=== PATIENT | male | born 1980 | race Caucasian/White ===

== ENCOUNTER → 2019-12-04 | Outpatient (CLI) | payer OTHER | LOC: LAB 09:58 | PROVIDERS: ATTEND Family Medicine | DX: R05 Cough (principal) | CPT/HCPCS: 87804 ==

== ENCOUNTER 2020-11-02 20:25 | Observation (INO) | payer OTHER ==
[~2020-11-02] VITALS: Ht 195.5 cm; Wt 127.0 kg
[2020-11-02 21:24] LABS: BASOPHILS % (AUTO) 0 % (0-10); EOSINOPHILS % (AUTO) 0 % (0-10); HEMATOCRIT 41 % (40-54); HEMOGLOBIN 13.8 g/dL (13.3-17.7); LYMPHOCYTES # (AUTO) 1.5 10^3/uL (1.0-4.0); LYMPHOCYTES % (AUTO) 28 % (12-44); MEAN CORPUSCULAR HEMOGLOBIN 27 pg (25-34); MEAN CORPUSCULAR HGB CONC 34 g/dL (32-36); MEAN CORPUSCULAR VOLUME 80 fL (80-99); MEAN PLATELET VOLUME 11.5 fL (9.0-12.2); MONOCYTES # (AUTO) 0.6 10^3/uL (0.0-1.0); MONOCYTES % (AUTO) 10 % (0-12); NEUTROPHILS # (AUTO) 3.3 10^3/uL (1.8-7.8); NEUTROPHILS % (AUTO) 61 % (42-75); PLATELET COUNT 166 10^3/uL (130-400); WHITE BLOOD COUNT 5.4 10^3/uL (4.3-11.0)
[2020-11-02 21:27] LABS: BILIRUBIN,URINE NEGATIVE (NEGATIVE); CLARITY,URINE CLEAR; COLOR,URINE YELLOW; GLUCOSE, URINE (UA) NEGATIVE (NEGATIVE); KETONES,URINE TRACE (NEGATIVE); LEUKOCYTE ESTERASE ,URINE NEGATIVE (NEGATIVE); NITRITE,URINE NEGATIVE (NEGATIVE); PROTEIN,URINE NEGATIVE (NEGATIVE)
[2020-11-02 21:28] LABS: CHLORIDE 94 MMOL/L (98-107); POTASSIUM 3.4 MMOL/L (3.6-5.0); SODIUM 134 MMOL/L (135-145)
[2020-11-02 21:29] LABS: CALCIUM 9.5 MG/DL (8.5-10.1)
[2020-11-02 21:30] LABS: GLUCOSE 193 MG/DL (70-105); TOTAL PROTEIN 7.9 GM/DL (6.4-8.2)
[2020-11-02] MEDS ORDERED: ONDANSETRON 4 MG/2 ML (SDV) Z0FRAN IVP ONE (21:30)
[2020-11-02] MEDS ORDERED: LACTATED RINGERS 1,000 ML IV ONE ×2 (21:30→23:30)
[2020-11-02] MEDS ORDERED: FAMOTIDINE 20MG/2ML IV (PEPCID) IVP ONE (21:30)
[2020-11-02 21:31] LABS: CARBON DIOXIDE 24 MMOL/L (21-32)
[2020-11-02 21:32] LABS: BILIRUBIN,TOTAL 0.7 MG/DL (0.1-1.0)
[2020-11-02 21:33] LABS: ALKALINE PHOSPHATASE 49 U/L (40-136)
[2020-11-02 21:34] LABS: CREATININE SERUM 0.96 MG/DL (0.60-1.30); GFR ESTIMATED > 60
[2020-11-02 21:35] LABS: BUN/CREATININE RATIO 9
[2020-11-02 21:36] LABS: ALANINE AMINOTRANSFERASE 39 U/L (0-55)
[2020-11-02 21:37] LABS: BACTERIA,URINE NEGATIVE /HPF; SQUAMOUS EPITHELIAL CELL,UR 0-2 /HPF; WBC,URINE 0-2 /HPF
[2020-11-02 21:37] LABS: LIPASE 57 U/L (8-78)
[2020-11-02 21:52] LABS: ALBUMIN 4.4 GM/DL (3.2-4.5)
[2020-11-02] MEDS ORDERED: NS 100 ML (IVPB) BAG IV ONE (22:30)
[2020-11-02] MEDS ORDERED: HOLD METFORMIN - RECEIVED CONTRAST 20 ML VIAL IV SCH (22:30)
[2020-11-02] MEDS ORDERED: IOHEXOL 350 MG/ML 100 ML (OMNIPAQUE 350) VIAL IV ONE (22:30)
[2020-11-02] MEDS ORDERED: fentaNYL INJECTION 100 MCG/2 ML AMP IVP ONE (23:15)
--- NOTE | 2020-11-02 23:24 | ED GI ---
General Chief Complaint: Abdominal/GI Problems Stated Complaint: ABD PAIN/NAUSEA Nursing Triage Note: Pt ambulates to ER7, reports nausea/abd pain starting 2 hours after eating [employer] the prior evening. Pt reports this morning pain goes from back/flank forward to abdomen. No emesis. Sepsis Screen: No Definite Risk Source of Information: Patient Exam Limitations: No Limitations (LOLY HERNANDEZ MED STUDENT) History of Present Illness Date Seen by Provider: Nov 02, 2020 Time Seen by Provider: 21:00 Initial Comments This is a 40 year old male presenting to the Emergency Department via ambulation for a chief complaint of right upper quadrant abdominal pain and nausea. He ate [employer] last night around 7:30PM. He went to bed then woke up around 12:30AM with dull abdominal pain and shaking chills. About 6 hours later, he had right back pain that radiated to his abdomen. He felt "blah" the rest of the day. He took his medication around 7PM then had worse pain and shaking around 7:45. In the ER, he had a fever of 38.4C. He had nausea but denies cough, shortness of breath, vomiting, blood in his urination, or diarrhea. He's had a history of gallstones. Timing/Duration: 1 Day Location: [facility] (LOLY HERNANDEZ MED STUDENT) Allergies and Home Medications Allergies Coded Allergies: No Known Drug Allergies (Unverified , 11/02/20) Home Medications Atorvastatin Calcium 20 Mg Tablet, 20 MG PO DAILY, (Reported) Glyburide 5 Mg Tablet, 5 MG PO BID, (Reported) Lisinopril 10 Mg Tablet, 10 MG PO DAILY, (Reported) Metformin HCl 1,000 Mg Tablet, 1,000 MG PO BID, (Reported) Trazodone HCl 50 Mg Tablet, 50 MG PO HS, (Reported) Patient Home Medication List Home Medication List Reviewed: Yes (VERO BARTON MD) Review of Systems Review of Systems Constitutional: chills, fever EENTM: No Symptoms Reported Respiratory: No Symptoms Reported; Denies Cough, Denies Shortness of Air Cardiovascular: No Symptoms Reported Gastrointestinal: Abdominal Pain; Denies Diarrhea; Nausea; Denies Rectal Bleeding, Denies Vomiting Genitourinary: No Symptoms Reported Musculoskeletal: back pain Skin: no symptoms reported Psychiatric/Neurological: Tremors Endocrine: No Symptoms Reported (LOLY HERNANDEZ) Past Zsdizuh-Ksbgyj-Qcgfoi Hx Patient Social History Alcohol Use: Rarely Uses Smoking Status: Never a Smoker 2nd Hand Smoke Exposure: No Recent Infectious Disease Expo: No Recent Hopitalizations: No (LOLY HERNANDEZ) Immunizations Up To Date Tetanus Booster (TDap): Unknown Date of Pneumonia Vaccine: Oct 11, 2017 Date of Influenza Vaccine: Jul 11, 2020 (LOLY HERNANDEZ) Seasonal Allergies Seasonal Allergies: No (LOLY HERNANDEZ) Past Medical History Surgeries: Yes Orthopedic Respiratory: No Cardiac: Yes High Cholesterol, Hypertension Neurological: No Genitourinary: No Gastrointestinal: No Musculoskeletal: Yes (BPOP) Diabetes, Non-Insulin dep HEENT: No Cancer: No Psychosocial: No Integumentary: No Blood Disorders: No (LOLY HERNANDEZ) Physical Exam Vital Signs Vital Signs - First Documented 11/02/20 20:38 Temp 38.0 Pulse 105 Resp 18 B/P (MAP) 146/91 (109) Pulse Ox 97 O2 Delivery Room Air (VERO BARTON MD) Vital Signs Capillary Refill : Less Than 3 Seconds (LOLY HERNANDEZ) Height/Weight/BMI Height: '" Weight: lbs. oz. kg; 32.00 BMI Method: General Appearance: WD/WN, no apparent distress Respiratory: chest non-tender, lungs clear, normal breath sounds, no respiratory distress, no accessory muscle use Cardiovascular: regular rate, rhythm Gastrointestinal: normal bowel sounds, tenderness Neurologic/Psychiatric: alert, normal mood/affect Skin: normal color (LOLY HERNANDEZ) Progress/Results/Core Measures Results/Orders Lab Results Laboratory Tests Test 11/02/20 20:50 11/02/20 21:22 Range/Units White Blood Count 5.4 4.3-11.0 10^3/uL Red Blood Count 5.15 4.30-5.52 10^6/uL Hemoglobin 13.8 13.3-17.7 g/dL Hematocrit 41 40-54 % Mean Corpuscular Volume 80 80-99 fL Mean Corpuscular Hemoglobin 27 25-34 pg Mean Corpuscular Hemoglobin Concent 34 32-36 g/dL Red Cell Distribution Width 13.6 10.0-14.5 % Platelet Count 166 130-400 10^3/uL Mean Platelet Volume 11.5 9.0-12.2 fL Immature Granulocyte % (Auto) 0 % Neutrophils (%) (Auto) 61 42-75 % Lymphocytes (%) (Auto) 28 12-44 % Monocytes (%) (Auto) 10 0-12 % Eosinophils (%) (Auto) 0 0-10 % Basophils (%) (Auto) 0 0-10 % Neutrophils # (Auto) 3.3 1.8-7.8 10^3/uL Lymphocytes # (Auto) 1.5 1.0-4.0 10^3/uL Monocytes # (Auto) 0.6 0.0-1.0 10^3/uL Eosinophils # (Auto) 0.0 0.0-0.3 10^3/uL Basophils # (Auto) 0.0 0.0-0.1 10^3/uL Immature Granulocyte # (Auto) 0.0 0.0-0.1 10^3/uL Sodium Level 134 L 135-145 MMOL/L Potassium Level 3.4 L 3.6-5.0 MMOL/L Chloride Level 94 L 98-107 MMOL/L Carbon Dioxide Level 24 21-32 MMOL/L Anion Gap 16 H 5-14 MMOL/L Blood Urea Nitrogen 9 7-18 MG/DL Creatinine 0.96 0.60-1.30 MG/DL Estimat Glomerular Filtration Rate > 60 BUN/Creatinine Ratio 9 Glucose Level 193 H 70-105 MG/DL Calcium Level 9.5 8.5-10.1 MG/DL Corrected Calcium 9.2 8.5-10.1 MG/DL Total Bilirubin 0.7 0.1-1.0 MG/DL Aspartate Amino Transf (AST/SGOT) 20 5-34 U/L Alanine Aminotransferase (ALT/SGPT) 39 0-55 U/L Alkaline Phosphatase 49 40-136 U/L C-Reactive Protein High Sensitivity 2.51 H 0.00-0.50 MG/DL Total Protein 7.9 6.4-8.2 GM/DL Albumin 4.4 3.2-4.5 GM/DL Lipase 57 8-78 U/L Urine Color YELLOW Urine Clarity CLEAR Urine pH 7.0 5-9 Urine Specific [place] 1.020 1.016-1.022 Urine Protein NEGATIVE NEGATIVE Urine Glucose (UA) NEGATIVE NEGATIVE Urine Ketones TRACE H NEGATIVE Urine Nitrite NEGATIVE NEGATIVE Urine Bilirubin NEGATIVE NEGATIVE Urine Urobilinogen 1.0 < = 1.0 MG/DL Urine Leukocyte Esterase NEGATIVE NEGATIVE Urine RBC (Auto) NEGATIVE NEGATIVE Urine RBC NONE /HPF Urine WBC 0-2 /HPF Urine Squamous Epithelial Cells 0-2 /HPF Urine Crystals NONE /LPF Urine Bacteria NEGATIVE /HPF Urine Casts NONE /LPF Urine Mucus NEGATIVE /LPF Urine Culture Indicated NO (VERO BARTON MD) My Orders Orders - VERO BARTON MD Cbc With Automated Diff (11/02/20 21:16) Comprehensive Metabolic Panel (11/02/20 21:16) Lipase (11/02/20 21:16) Hs C Reactive Protein (11/02/20 21:16) Ua Culture If Indicated (11/02/20 21:16) Ed Iv/Invasive Line Start (11/02/20 21:16) Famotidine Injection (Pepcid Injection) (11/02/20 21:30) Ondansetron Injection (Zofran Injectio (11/02/20 21:30) Lactated Ringers (Lr 1000 Ml Iv Solution (11/02/20 21:30) Us Gallbladder [id number] (11/02/20 22:02) Ct Abdomen/Pelvis W (11/02/20 22:06) Iohexol Injection (Omnipaque 350 Mg/Ml 1 (11/02/20 22:30) Received Contrast (Hold Metformin- Contr (11/02/20 22:30) Ns (Ivpb) (Sodium Chloride 0.9% Ivpb Bag (11/02/20 22:30) Fentanyl Injection (Sublimaze Injection (11/02/20 23:15) Ciprofloxacin Iv 400mg/200ml (Cipro Iv S (11/02/20 23:30) Lactated Ringers (Lr 1000 Ml Iv Solution (11/02/20 23:30) (VERO BARTON MD) Medications Given in ED Current Medications Medications Dose Ordered Sig/Paul Route Start Time Stop Time Status Last Admin Dose Admin Famotidine 20 mg ONCE ONCE IVP 11/02/20 21:30 11/02/20 21:31 DC 11/02/20 22:09 20 MG Fentanyl Citrate 50 mcg ONCE ONCE IVP 11/02/20 23:15 11/02/20 23:16 DC 11/02/20 23:13 50 MCG Iohexol 100 ml ONCE ONCE IV 11/02/20 22:30 11/02/20 22:38 DC 11/02/20 22:30 100 ML Lactated Ringer's 1,000 ml @ 0 mls/hr Q0M ONCE IV 11/02/20 21:30 11/02/20 21:31 DC 11/02/20 22:09 999 MLS/HR Ondansetron HCl 8 mg ONCE ONCE IVP 11/02/20 21:30 11/02/20 21:31 DC 11/02/20 22:09 8 MG Sodium Chloride 80 ml ONCE ONCE IV 11/02/20 22:30 11/02/20 22:38 DC 11/02/20 22:30 80 ML (VERO BARTON MD) Vital Signs/I&O 11/02/20 20:38 Temp 38.0 Pulse 105 Resp 18 B/P (MAP) 146/91 (109) Pulse Ox 97 O2 Delivery Room Air 11/03/20 00:00 Intake Total 1000 ml Balance 1000 ml (VERO BARTON MD) Blood Pressure Mean: 109 Progress Progress Note : Time: 21:30 Progress Note - IV line was established and blood was drawn. NS was administered. Fentanyl was ordered for his abdominal pain. Odansetron was ordered for his nausea. U/S vs CT imaging studies and the risks were discussed with the patient. That patient preferred to go ahead with the CT. CT of the abdomen and pelvis results pending. There are possible stones in the gallbladder. Ciprofloxacin was ordered for possible gallbladder infection. He will be admitted over night to discuss the possibility of surgery with Dr. Crews in the morning. (LOLY HERNANDEZ X MED STUDENT) Progress Note : Progress Note Patient was seen and examined by me personally along with Loly Hernandez, MS 3. I am concerned about his fever in the context of right upper quadrant pain and gallstones visible on the CT scan. This was discussed with Dr. Hancock. As this may represent early acute cholecystitis, he recommended treating with Cipro and Flagyl. The first dose of IV Cipro was given in the ER. Fentanyl was given for pain. IV fluids were initiated. (VERO BARTON MD) Diagnostic Imaging Diagonstic Imaging: CT Plain Films/CT/US/NM/MRI: abdomen, pelvis Comments CT abdomen and pelvis viewed by me and stat rad report reviewed. Gallstones visible within the gallbladder. No pericholecystic fluid. (VERO BARTON MD) Departure Communication (Admissions) Time/Spoke to Admitting Phy: 23:07 Dr. Hancock (VERO BARTON MD) Impression Primary Impression: Cholelithiases Qualified Codes: K80.20 - Calculus of gallbladder without cholecystitis without obstruction Additional Impression: Fever Qualified Codes: R50.9 - Fever, unspecified Disposition: ADMITTED INPATIENT Condition: Improved Admissions Decision to Admit Reason: Admit from ER (General) Decision to Admit/Date: Nov 02, 2020 Time/Decision to Admit Time: 23:05 (VERO BARTON MD) Departure-Patient Inst. Referrals: JOYCE NEVAREZ MD (PCP/Family) Primary Care Physician Medical Student Attestation and Attending Note: I have personally interviewed and examined this patient along with Loly Hernandez, MS 3. I have reviewed student documentation including history, physical, and assessments. I agree with the documentation except where otherwise noted. Exam: General: Alert, oriented, no acute distress, well developed HEENT: Normocephalic and atraumatic Heart: Regular rate and rhythm without murmur Lungs: Clear to auscultation bilaterally with normal effort Abdomen: Soft, tenderness in the right upper quadrant and epigastrium with positive Tyler sign Neuropsych: Alert, oriented, no focal deficits Skin: Warm and dry without rashes (VERO BARTON MD) LOLY HERNANDEZ MED STUDENT Nov 02, 2020 23:24 VERO BARTON MD Nov 03, 2020 06:21
[2020-11-02] MEDS ORDERED: CIPROFLOXACIN IV 400MG/200ML 200 ML IV ONE (23:30)
--- NOTE | 2020-11-03 00:30 | HISTORY AND PHYSICAL ---
DATE OF SERVICE: ATTENDING PRIMARY CARE PHYSICIAN: Michelle Lindsay MD HISTORY OF PRESENT ILLNESS: The patient is a 40-year-old male who presented to the Emergency Department with right upper abdominal quadrant pain with radiation towards the back. He states that the night previous he had had a greasy meal and approximately 2 hours later developed pain in the right upper abdominal quadrant with radiation towards the back and this was associated with nausea; however, no vomiting. This pain persisted and he also had some mild fevers at home. He does not report any sick contacts, cough, high fevers nor any loss of smell or taste. A CT scan was performed, which did show some layering of the dependent portion of the gallbladder, which may indicate biliary sludge. His liver function enzymes as well as white count are normal. PAST MEDICAL HISTORY: Hypertension, hypercholesterolemia, diabetes. PAST SURGICAL HISTORY: Orthopedic procedure. ALLERGIES: No known drug allergies. MEDICATIONS: Antihypertensive. SOCIAL HISTORY: Negative smoke, negative alcohol. REVIEW OF SYSTEMS: Well-nourished male, currently in no acute distress. He is not experiencing any shortness of breath and difficulty breathing. No chest pain, palpitations, diaphoresis. Previous episodes of nausea; however, no vomiting, no diarrhea or constipation, no red blood per rectum, no dark tarry stools. He did have an episode of fevers, no recent inadvertent weight loss. All other review of systems negative. PHYSICAL EXAMINATION: VITAL SIGNS: Temperature 38, blood pressure 146/91, pulse 105, respirations 18, pulse ox 97% on room air. CHEST: Clear. Good breath sounds bilaterally. HEART: Regular, no murmurs. EXTREMITIES: No lower extremity edema, negative Homans sign. HEENT: No scleral icterus. NECK: No cervical lymphadenopathy. ABDOMEN: Soft, nondistended. There is mild discomfort in the right upper abdominal quadrant upon deep palpation. No peritoneal signs. No hernias. SKIN: Warm, dry. LABORATORY DATA: WBC 5.4, hemoglobin 13.8, hematocrit 41, platelets 166. BUN 9, creatinine 0.96. ASSESSMENT AND PLAN: A 40-year-old male with right upper abdominal quadrant pain associated with nausea. A CT scan did not show any gallbladder wall inflammation; however, there was some layering in the dependent portions of the gallbladder, which may indicate biliary sludge. For now, we will admit him for adequate pain control, IV hydration as well as to monitor his symptomatology. He may need further evaluation with an ultrasound. If his pain is under control and he is able to tolerate a diet, he may elect to proceed with outpatient radiologic studies versus continue with further testing with a possible ultrasound on this admission and if consistent with a chronic calculous cholecystitis or symptomatic biliary sludge, he then may elect to proceed with a laparoscopic cholecystectomy on this admission. Job ID: [id number] DocumentID: [id number] Dictated Date: 11/03/2020 00:07:08 Supervisor Graphite Date: 11/03/2020 00:29:46 Dictated By: KESHAV COX MD
[2020-11-03 00:45] VITALS: BP 170/74
--- NOTE | 2020-11-03 00:45 | NUR ---
PATSY SEALS admitted to room 419-1, with an admitting diagnosis of CHOLELITHIASIS/FEVER, on 11/02/20 from ED via , accompanied by STAFF.PATSY SEALS introduced to surroundings, call light, bed controls, phone, TV, temperature control, lights, meal times, smoking policy, visitor policy, side rail policy, bathrooms and showers. Patient Rights given to patient in the handbook. PATSY SEALS verbalizes understanding that [facility] is not responsible for the loss or damage to any personal effects or valuables that are kept in the patients possession during their hospitalization.
[2020-11-03] MEDS ORDERED: metroNIDAZOLE 500MG/100ML IVPB 100 ML ONE (01:57)
[2020-11-03] MEDS ORDERED: fentaNYL INJECTION 100 MCG/2 ML AMP ONE (01:58)
[2020-11-03] MEDS ORDERED: ONDANSETRON 4 MG/2 ML (SDV) Z0FRAN IV PRN (02:30)
[2020-11-03] MEDS ORDERED: ACETAMINOPHEN 500 MG TAB (TYLENOL) PO PRN (02:30)
[2020-11-03] MEDS: LACTATED RINGERS 1,000 ML IV SCH ×2 (02:54→08:39)
[2020-11-03] MEDS: fentaNYL INJECTION 100 MCG/2 ML AMP IV PRN ×3 (02:57→08:38)
[2020-11-03 03:00] VITALS: BP 126/58
[2020-11-03] MEDS ORDERED: metroNIDAZOLE 500 MG/100 ML IVPB (PRE-MIX) IV SCH (03:00)
[2020-11-03] MEDS ORDERED: ATOR20TA49 PO (03:16)
[2020-11-03] MEDS ORDERED: METF-399 PO (03:16)
[2020-11-03] MEDS ORDERED: TRZ50T PO (03:16)
[2020-11-03] MEDS ORDERED: LISI10TA2 PO (03:16)
[2020-11-03] MEDS ORDERED: GLBR5T PO (03:16)
[2020-11-03 04:48] LABS: BASOPHILS % (AUTO) 0 % (0-10); EOSINOPHILS % (AUTO) 0 % (0-10); HEMATOCRIT 38 % (40-54); HEMOGLOBIN 12.9 g/dL (13.3-17.7); LYMPHOCYTES # (AUTO) 1.1 10^3/uL (1.0-4.0); LYMPHOCYTES % (AUTO) 15 % (12-44); MEAN CORPUSCULAR HEMOGLOBIN 27 pg (25-34); MEAN CORPUSCULAR HGB CONC 34 g/dL (32-36); MEAN CORPUSCULAR VOLUME 78 fL (80-99); MEAN PLATELET VOLUME 10.9 fL (9.0-12.2); MONOCYTES # (AUTO) 0.8 10^3/uL (0.0-1.0); MONOCYTES % (AUTO) 10 % (0-12); NEUTROPHILS # (AUTO) 5.5 10^3/uL (1.8-7.8); NEUTROPHILS % (AUTO) 74 % (42-75); PLATELET COUNT 130 10^3/uL (130-400); WHITE BLOOD COUNT 7.4 10^3/uL (4.3-11.0)
[2020-11-03 05:01] LABS: ALBUMIN 3.9 GM/DL (3.2-4.5); CHLORIDE 97 MMOL/L (98-107); POTASSIUM 3.6 MMOL/L (3.6-5.0); SODIUM 131 MMOL/L (135-145)
[2020-11-03 05:02] LABS: CALCIUM 8.4 MG/DL (8.5-10.1)
[2020-11-03 05:04] LABS: GLUCOSE 177 MG/DL (70-105); TOTAL PROTEIN 6.8 GM/DL (6.4-8.2)
[2020-11-03 05:05] LABS: BILIRUBIN,TOTAL 0.8 MG/DL (0.1-1.0); CARBON DIOXIDE 22 MMOL/L (21-32)
[2020-11-03 05:07] LABS: ALKALINE PHOSPHATASE 42 U/L (40-136); CREATININE SERUM 0.82 MG/DL (0.60-1.30); GFR ESTIMATED > 60
[2020-11-03 05:09] LABS: BUN/CREATININE RATIO 7
[2020-11-03 05:10] LABS: ALANINE AMINOTRANSFERASE 32 U/L (0-55)
[2020-11-03 05:11] LABS: LIPASE 23 U/L (8-78)
--- NOTE | 2020-11-03 07:57 | Diagnostic Imaging Report ---
PROCEDURE: CT abdomen and pelvis with contrast. TECHNIQUE: Multiple contiguous axial images were obtained through the abdomen and pelvis after administration of intravenous contrast. Auto Exposure Controls were utilized during the CT exam to meet ALARA standards for radiation dose reduction. All CT scans use one or more of the following dose optimizing techniques: automated exposure control, MA and/or KvP adjustment based on patient size and exam type or iterative reconstruction. INDICATION: Right upper quadrant pain and fever. FINDINGS: There appears to be some degree of bilateral gynecomastia. The heart size is normal. The lung bases are clear. There is mild fatty infiltration of the liver. There is cholelithiasis. The gallbladder is otherwise unremarkable. No biliary duct dilatation. Spleen is normal. Pancreas and adrenal glands are unremarkable. There are tiny nonobstructing bilateral renal calculi. The aorta is nonaneurysmal. The bowel gas pattern is nonspecific. There is no free air. There is no ascites. There are no focal inflammatory changes. Bladder is normal. There is no pelvic mass or adenopathy. There are mild degenerative changes in the spine. IMPRESSION: Fatty infiltration of the liver. Cholelithiasis Punctate nonobstructing renal calculi No other acute abnormality in the abdomen or pelvis Dictated by: Dictated on workstation # [id number]
[2020-11-03 08:00] VITALS: BP 155/90
[2020-11-03] MEDS ORDERED: FAMOTIDINE 20MG/2ML IV (PEPCID) IVP SCH (09:00)
[2020-11-03] MEDS ORDERED: CIPROFLOXACIN 400 MG/D5W 200 ML (PRE-MIX) IV SCH (09:00)
[2020-11-03] MEDS ORDERED: HYDR-3817 PO (10:32)
[2020-11-03] MEDS ORDERED: ONDN4T PO (10:33)
--- NOTE | 2020-11-03 10:35 | Discharge Inst-Surgical ---
D/C Lap Instructions-KIDO New, Converted, or Re-Newed RX: RX on Chart Call office to schedule laparoscopic surgery as outpatient. Activity as tolerated Regula Low fat diet Symptoms to Report: Fever over 101 degree F, Nausea/Vomiting Infection Signs and Symptoms to report: Increased redness, Foul odor of wound, Increased drainage Bathing instructions: May shower Operative Area Clean/Dry; Keep incision clean/dry If any problems/questions: Contact your physician or go to Emergency Room KESHAV COX MD Nov 03, 2020 10:35
[2020-11-03 12:00] VITALS: BP 143/83
--- NOTE | 2020-11-03 14:15 | NUR ---
PATSY SEALS demonstrates understanding of discharge instructions and accurately returns instructions upon questioning. Copy of Post-Discharge Instructions and Medication Discharge Instructions given to PATIENT. PATSY SEALS is able to manage continuing needs after discharge. Patients belongings returned to PATIENT. Skin dry and intact; no breakdown noted. Patient discharged from [facility]- on 11/03/20 at 1410. PATSY SEALS left floor via AMBULATORY, accompanied by STAFF.
[2020-11-03 14:30] VITALS: BP 142/86
--- NOTE | 2020-11-04 16:50 | Physician Query-Final Dx ---
MONICA NICKERSON 11/04/20 1650: Final Diagnosis Give Final Diagnosis Please give Final Diagnosis KESHAV COX MD 11/05/20 1357: Final Diagnosis Give Final Diagnosis symptomatic chronic calculous cholecystitis MONICA NICKERSON Nov 04, 2020 16:50 KESHAV COX MD Nov 05, 2020 13:57
--- NOTE | 2020-11-05 07:56 | NUR ---
Received dietary consult for MST score. Note pt has discharged at this time.
== END 2020-11-03 14:10 | disposition home or self-care (01) ==
LOC: EDUNIT# 20:25 → ER 20:27 → 4TH 23:25
PROVIDERS: ADMIT Surgery; ATTEND Surgery
DX: K80.10 Calculus of gallbladder with chronic cholecystitis without obstruction (principal); I10 Essential (primary) hypertension; E78.00 Pure hypercholesterolemia, unspecified; E11.9 Type 2 diabetes mellitus without complications; Z79.899 Other long term (current) drug therapy
CPT/HCPCS: 36415; 74177; 80053; 81000; 83690; 85025; 86141; G0378

== ENCOUNTER 2020-11-19 05:36 | Outpatient (RCR) | payer OTHER ==
[~2020-11-19] VITALS: Ht 195.6 cm; Wt 120.8 kg
[~2020-11-19 05:36] MED LIST: ATOR20TA49 PO; GLBR5T PO; HYDR-3817 PO; LISI10TA2 PO; METF-397 PO; METF-399 PO; ONDN4T PO; TRZ50T PO
== END 2020-11-19 10:51 | disposition home or self-care (01) ==
LOC: PREOP 05:36
PROVIDERS: ATTEND Surgery
DX: Z01.818 Encounter for other preprocedural examination (principal); K80.20 Calculus of gallbladder without cholecystitis without obstruction; Z20.822 Contact with and (suspected) exposure to COVID-19
CPT/HCPCS: 87635

== ENCOUNTER 2020-11-21 08:13 | Day surgery (SDC) | payer OTHER ==
[2020-11-21] VITALS (13 sets, daily range): BP systolic 116–155; BP diastolic 71–87
[~2020-11-21] VITALS: Ht 195.6 cm; Wt 120.8 kg
[~2020-11-21 08:13] MED LIST changes: -LISI10TA2 PO; +LISI10TA25 PO
--- NOTE | 2020-11-21 08:37 | Progress Note-Pre Operative ---
Pre-Operative Progress Note H&P Reviewed The H&P was reviewed, patient examined and no changes noted. Date Seen by Provider: Nov 21, 2020 Time Seen by Provider: 08:35 Date H&P Reviewed: Nov 21, 2020 Time H&P Reviewed: 08:30 Pre-Operative Diagnosis: Chronic calculous cholecystitis JUAN M FRAZIER APRN Nov 21, 2020 08:37
[2020-11-21] MEDS ORDERED: HYDR-4227 PO (08:39)
--- NOTE | 2020-11-21 08:40 | Discharge Inst-Surgical ---
D/C Lap Instructions-KIDO Reconcile Patient Problems Problems Reviewed?: Yes New, Converted, or Re-Newed RX: RX on Chart Follow Up Appt in 2 weeks Activity as tolerated No driving for 24 hours No driving while on pain medications Incentive Spirometry use every 2 hours while awake Regular Diet Symptoms to Report: Fever over 101 degree F, Nausea/Vomiting Infection Signs and Symptoms to report: Increased redness, Foul odor of wound, Increased drainage Bathing instructions: May shower Operative Area Clean/Dry; Keep incision clean/dry If any problems/questions: Contact your physician or go to Emergency Room JUAN M FRAZIER APRN Nov 21, 2020 08:40
[2020-11-21] MEDS ORDERED: ceFAZolin 2 GM IV Premixed 50 ML IV ONE (08:45)
[2020-11-21] MEDS ORDERED: HYDROcodone/APAP 5 MG/325 MG (LORTAB) TAB PO ONE (08:45)
[2020-11-21] MEDS ORDERED: ACETAMINOPHEN 325 MG TABLET PO PRN (08:45)
[2020-11-21] MEDS ORDERED: morphine INJ 10 MG/ML 1ML (SYR OR VIAL) IVP PRN (08:45)
[2020-11-21] MEDS ORDERED: ONDANSETRON 4 MG/2 ML (SDV) Z0FRAN IVP PRN (08:45)
[2020-11-21] MEDS: LACTATED RINGERS 1,000 ML IV PRN ×2 (09:25→11:11)
[2020-11-21] MEDS ORDERED: fentaNYL INJECTION 100 MCG/2 ML AMP ONE (09:37)
[2020-11-21] MEDS ORDERED: MIDAZOLAM 2 MG/2 ML (VERSED) VIAL ONE (09:38)
[2020-11-21] MEDS ORDERED: LIDOCAINE PF 2% 5 ML (XYLOCAINE) VIAL ONE (09:38)
[2020-11-21] MEDS ORDERED: proPOfol 200 MG/20 ML (DIPRIVAN) VIAL IV ONE (09:38)
[2020-11-21] MEDS ORDERED: LIDOCAINE/EPI 1%-1:100,000 (XYLOCAINE) 50 ML ONE (09:42)
[2020-11-21] MEDS ORDERED: ROCURONIUM 10 MG/ML 5 ML SYRINGE IV ONE (11:31)
[2020-11-21] MEDS ORDERED: HYDROmorphone 2 MG/ML VIAL (DILAUDID) ONE (11:31)
[2020-11-21] MEDS ORDERED: GLYCOPYRROLATE 0.2 MG/ML (ROBINUL) 2 ML VIAL ONE (11:31)
[2020-11-21] MEDS ORDERED: SEVOFLURANE (ULTANE) 15 ML INHAL SOLN ONE (11:31)
[2020-11-21] MEDS ORDERED: ONDANSETRON 4 MG/2 ML (SDV) Z0FRAN ONE (11:31)
[2020-11-21] MEDS ORDERED: NEOSTIGMINE 3 MG/3 ML VIAL ONE (11:31)
--- NOTE | 2020-11-21 11:39 | Progress Note-Post Operative ---
Post-Operative Progess Note Surgeon (s)/Coin Machine Servicer Repairer (s) Surgeon KESHAV COX MD Coin Machine Servicer Repairer: pierre richards SONG LYRICIST Pre-Operative Diagnosis Chronic calculous cholecystitis Post-Operative Diagnosis same Procedure & Operative Findings Date of Procedure 11/21/20 Procedure Performed/Findings laparoscopic cholecystectomy Anesthesia Type get Estimated Blood Loss Estimated blood loss (mL): minimal Specimens/Packing Specimens Removed gallbladder KESHAV COX MD Nov 21, 2020 11:39
[2020-11-21] MEDS ORDERED: morphine INJ 10 MG/ML 1ML (SYR OR VIAL) IVP ONE (12:00)
[2020-11-21] MEDS ORDERED: HYDROmorphone 2 MG/ML VIAL (DILAUDID) IV ONE (12:00)
[2020-11-21] MEDS: ONDANSETRON 4 MG/2 ML (SDV) Z0FRAN IVP PRN ×2 (12:06→13:01)
[2020-11-21] MEDS ORDERED: HYDROcodone/APAP 5 MG/325 MG (LORTAB) TAB ONE (13:06)
--- NOTE | 2020-11-21 14:29 | Anesthesia-General Post-Op ---
General Patient Condition Mental Status/LOC: Same as Preop Cardiovascular: Satisfactory Nausea/Vomiting: Absent Respiratory: Satisfactory Pain: Controlled Complications: Absent Post Op Complications Complications None Follow Up Care/Instructions Patient Instructions None needed. Anesthesia/Patient Condition Patient Condition Patient was seen this morning after the procedure and he was doing well, no complaints, stable vital signs, no apparent adverse anesthesia problems. BUTCH CORONA DO Nov 21, 2020 14:29
--- NOTE | 2020-11-21 15:03 | OPERATIVE REPORT ---
DATE OF SERVICE: 11/21/2020 ATTENDING PRIMARY CARE PHYSICIAN: Michelle Lindsay MD PREOPERATIVE DIAGNOSIS: Symptomatic chronic calculous cholecystitis. POSTOPERATIVE DIAGNOSIS: Symptomatic chronic calculous cholecystitis. PROCEDURE: Laparoscopic cholecystectomy. SURGEON: Keshav Cox MD. SUBMARINE DIVER: Luis Beach APRN. ANESTHESIA: General endotracheal. ESTIMATED BLOOD LOSS: Minimal. FINDINGS: Multiple gallstones. DISPOSITION: The patient tolerated the procedure well. INDICATIONS: The patient is a 40-year-old male who presented to the Emergency Department with right upper abdominal quadrant pain with associated nausea and vomiting. He underwent a CT scan, which did show gallstones; however, no gallbladder wall thickening and his laboratory work was normal. He was admitted and did feel considerably better the following day and was discharged home. He is now here for definitive therapy, which was laparoscopic cholecystectomy. He has not had any episodes of pain since his recent admission. DESCRIPTION OF PROCEDURE: The patient was brought to the operating room, laid supine on the table. After adequate IV pain and sedative medications and general endotracheal intubation, the abdomen was prepped and draped in standard surgical fashion. A 0.5% Marcaine with epinephrine was used to anesthetize the overlying skin in the left upper abdominal quadrant and a transverse skin incision made using a 15 blade. An 0 silk suture was applied to the medial aspect incision for retraction and a Veress needle inserted with a low opening pressure of 0 mmHg. The abdomen was insufflated to 15 mmHg pressure. The Veress needle removed and a 5 mm XL trocar placed followed by a 5 mm 45-degree angle laparoscope visualizing the peritoneal cavity. A 4-quadrant abdominal exploration was performed. There was mild hepatomegaly, slightly distended gallbladder, no gallbladder wall thickening. Under direct visualization, a supraumbilical 10 mm port was placed after the skin and peritoneal lining were anesthetized using 0.5% Marcaine with epinephrine and a transverse skin incision made using a 15 blade. In a similar manner, a right upper abdominal quadrant 5 mm port was placed. The fundus of the gallbladder was then retracted anteriorly and superiorly. The hepatoduodenal ligament was then opened using blunt dissection as well as electrocautery on the hook instrument. The entire critical view of safety was identified including the triangle of Calot as well as the cystic duct and artery as only two structures going into the gallbladder as well as the cystic plate behind the proximal gallbladder. A timeout was then taken and the cystic duct and artery were then clipped proximally and distally and cut with EndoShears. The gallbladder was then dissected off the liver bed using cautery on the hook instrument with visualization of good hemostasis as well as no leaking ducts of Luschka. The gallbladder was removed through the 10 mm port site using an EndoCatch bag. The 10 mm port site fascia and peritoneum were then closed under direct visualization using Juliocesar-Ariel device and 0 Vicryl suture. The abdomen was then desufflated and remaining ports removed. All skin incisions were closed using 4-0 Monocryl running subcuticular sutures. Wounds were then cleaned and covered with Dermabond. The patient tolerated the procedure well. We will start IV normal pain medication as well as a clear liquid diet. Once he is tolerating clears, has good pain control with oral pain medications, ambulating well, we will discharge him home. He will be instructed to do no heavy lifting or exertion for the next two weeks. Job ID: [id number] DocumentID: [id number] Dictated Date: 11/21/2020 11:51:23 Borderer Date: 11/21/2020 15:02:11 Dictated By: KESHAV COX MD MTDD
== END 2020-11-21 14:40 | disposition home or self-care (01) ==
LOC: SDC 08:13
PROVIDERS: ATTEND Surgery
DX: K80.10 Calculus of gallbladder with chronic cholecystitis without obstruction (principal); I10 Essential (primary) hypertension; E11.40 Type 2 diabetes mellitus with diabetic neuropathy, unspecified; E78.00 Pure hypercholesterolemia, unspecified; Z79.899 Other long term (current) drug therapy
CPT/HCPCS: 82962; 87081; 88304

== ENCOUNTER → 2021-03-31 | Outpatient (CLI) | payer OTHER ==
[~2021-03-31] MED LIST changes: +HYDR-4227 PO
--- NOTE | 2021-03-31 15:43 | Diagnostic Imaging Report ---
INDICATION: Back pain with radiculopathy. COMPARISON: None. FINDINGS: Frontal and lateral views of the lumbar spine were obtained. Alignment and vertebral heights are maintained. There is no fracture or destructive process. Mild multilevel degenerative disease is noted in the lumbar spine. Limited views of the abdomen demonstrate nonobstructive bowel gas pattern. IMPRESSION: 1. No acute fracture or dislocation of the lumbar spine. 2. Mild multilevel degenerative changes. Dictated by: Dictated on workstation # [id number]
== END ==
LOC: RAD 14:16
DX: M47.26 Other spondylosis with radiculopathy, lumbar region (principal)
CPT/HCPCS: 72100

== ENCOUNTER 2021-05-14 10:25 | Outpatient (RCR) | payer OTHER | END 2021-06-11 08:30 | disposition home or self-care (01) | PROVIDERS: ATTEND Nurse Practitioner Family | DX: M79.652 Pain in left thigh (principal); M54.9 Dorsalgia, unspecified; I10 Essential (primary) hypertension; E11.9 Type 2 diabetes mellitus without complications ==

== ENCOUNTER → 2022-05-06 | Outpatient (CLI) | payer OTHER ==
--- NOTE | 2022-05-06 15:29 | Diagnostic Imaging Report ---
EXAMINATION: Abdomen at 1111 hours. INDICATION: Abdominal pain. TECHNIQUE: Two supine views were obtained. FINDINGS: There is gas in both the large and small bowel in a nonspecific fashion. This appearance is similar to the prior CT abdomen/pelvis exam of 11/02/2020. There is no evidence for a bowel obstruction. There is a moderate amount of fecal material within the colon. There is no sign of a fecal impaction. There is no mass, organomegaly, or pathological calcification evident. The osseous structures are intact. There is some deformity of the left femoral neck. This finding was also present on the prior exam and has not changed significantly. This could be a sequela of prior trauma. IMPRESSION: The bowel gas pattern is nonspecific. There is no acute abnormality identified. Dictated by: Dictated on workstation # [id number]
== END ==
LOC: RAD
PROVIDERS: ATTEND Family Medicine
DX: M54.50 Low back pain, unspecified (principal); R11.0 Nausea
CPT/HCPCS: 74018